=== PATIENT | male | born 1965 | race Hispanic/Latino ===

== ENCOUNTER 2020-01-26 09:56 | Emergency (ER) | payer BC ==
[2020-01-26 11:09] VITALS: BP 140/84
--- NOTE | 2020-01-26 12:10 | Emergency Department Report ---
Blank Doc - Documentation Documentation: 54-year-old male that presents with right sided lower abdominal pain w/ hx of hernia. This initial assessment/diagnostic orders/clinical plan/treatment(s) is/are subject to change based on patient's health status, clinical progression and re- assessment by fellow clinical providers in the ED. Further treatment and workup at subsequent clinical providers discretion. Patient/guardians urged not to elope from the ED as their condition may be serious if not clinically assessed and managed. Initial orders include: 1- Patient sent to [facility] for further evaluation and treatment 2- labs 3- UA
[2020-01-26 13:16] LABS: Basophils # (Auto) 0.1 K/mm3 (0.0-0.1); Basophils % (Auto) 0.5 % (0.0-1.8); Eosinophils # (Auto) 0.1 K/mm3 (0.0-0.4); Eosinophils % (Auto) 0.9 % (0.0-4.3); Hemoglobin 11.8 gm/dl (11.8-15.2); Lymphocytes # (Auto) 1.7 K/mm3 (1.2-5.4); Lymphocytes % (Auto) 14.8 % (13.4-35.0); Mean Corpuscular HGB Conc 35 % (32-34); Mean Corpuscular Volume 82 fl (84-94); Monocytes # (Auto) 0.7 K/mm3 (0.0-0.8); Monocytes % (Auto) 5.8 % (0.0-7.3); Platelet Count 496 K/mm3 (140-440); Red Blood Count 4.13 M/mm3 (3.65-5.03); Red Cell Distribution Width 13.8 % (13.2-15.2)
[2020-01-26 14:03] LABS: Alanine Aminotransferase 44 units/L (7-56); Albumin 4.2 g/dL (3.9-5); BUN/Creatinine Ratio 25; Blood Urea Nitrogen 25 mg/dL (9-20); Calcium 9.6 mg/dL (8.4-10.2); Hemolysis Index 9
--- NOTE | 2020-01-26 15:04 | Emergency Department Report ---
ED Abdominal Pain HPI - General Chief Complaint: Urogenital-Male Stated Complaint: ABD PAIN Time Seen by Provider: 01/26/20 12:09 Source: patient Mode of arrival: Ambulatory Limitations: No Limitations - History of Present Illness Initial Comments: 54-year-old male with history of bilateral inguinal hernias presents to ED with right lower quadrant pain. Patient underwent left inguinal hernia repair in [place], [place] on January 15. Patient is currently at [facility] for drug and alcohol abuse. Patient reports earlier today the hernia on the right side was bulging and causing pain. Patient states since he has been waiting the bulge has disappeared and his pain has resolved. Patient denies any fever, nausea or vomiting. MD Complaint: abdominal pain -: hour(s) (6) Location: RLQ Radiation: none Migration to: no migration Severity: moderate Severity scale (0 -10): 5 Quality: aching Consistency: now resolved Improves With: nothing Worsens With: nothing Associated Symptoms: denies: nausea, vomiting, fever ED Review of Systems ROS: Stated complaint: ABD PAIN Other details as noted in HPI Comment: All other systems reviewed and negative Constitutional: denies: chills, fever Gastrointestinal: abdominal pain. denies: nausea, vomiting ED Past Medical Hx - Past Medical History Previous Medical History?: No - Surgical History Past Surgical History?: Yes ED Physical Exam - General Limitations: No Limitations General appearance: alert, in no apparent distress - Head Head exam: Present: atraumatic, normocephalic - Eye Eye exam: Present: normal appearance, EOMI - ENT ENT exam: Present: mucous membranes moist - Neck Neck exam: Present: normal inspection - Respiratory Respiratory exam: Present: normal lung sounds bilaterally. Absent: respiratory distress - Cardiovascular Cardiovascular Exam: Present: regular rate, normal rhythm - GI/Abdominal GI/Abdominal exam: Present: soft, other (No hernia present in the right lower quadrant, no right lower quadrant tenderness on exam; bruising present in the left lower quadrant; incision site appears dry and intact). Absent: distended, tenderness, hernia - exam: Present: normal inspection - Extremities Exam Extremities exam: Present: normal inspection - Neurological Exam Neurological exam: Present: alert, oriented X3 - Psychiatric Psychiatric exam: Present: normal affect, normal mood - Skin Skin exam: Present: warm, dry, intact, normal color, ecchymosis (Left lower quadrant of the abdomen) ED Course Vital Signs 01/26/20 11:07 Temperature 97 F L Pulse Rate 103 H Respiratory 20 Rate Blood Pressure 140/84 [Left] O2 Sat by Pulse 97 Oximetry ED Medical Decision Making - Lab Data Result diagrams: 01/26/20 12:38 01/26/20 12:38 - Medical Decision Making 54-year-old male presents to ED with pain due to inguinal hernia. Pain has currently resolved. On exam, no evidence of incarcerated hernia. Patient is feeling much better at this time and wishes to go home. Patient states he will be leaving [facility] soon and will follow-up with his surgeon in [place], [place]. Critical care attestation.: If time is entered above; I have spent that time in minutes in the direct care o f this critically ill patient, excluding procedure time. ED Disposition Clinical Impression: Inguinal hernia Disposition: DC-01 TO HOME OR SELFCARE Is pt being admited?: No Condition: Stable Instructions: Inguinal Hernia (ED) Referrals: PRIMARY CAREMD [Referring] - as needed JAQUI MG MD [Staff Physician] - as needed Time of Disposition: 15:07
== END 2020-01-26 22:51 | disposition home or self-care (01) ==
LOC: ED 09:56
DX: K40.90 Unilateral inguinal hernia, without obstruction or gangrene, not specified as recurrent (principal)
CPT/HCPCS: 36415; 80053; 83690; 85025; 99283